=== PATIENT | male | born 1935 | race Caucasian/White ===

== ENCOUNTER 2023-02-25 06:41 | Outpatient (CLI) | payer OTHER, SELFPAY ==
[2023-02-25 07:21] LABS: Basophils Percent Auto 0.4 % (0.2-1.2); Eosinophils Absolute Auto 0.2 K/mm3 (0-0.3); Hematocrit 41.1 % (42.0-52.0); Hemoglobin 13.5 g/dL (14.0-18.0); Immature Granulocyte Absolute 0.03 K/mm3 (0.00-0.031); Immature Granulocyte Percent A 0.3 % (0-0.5); Lymphocytes Absolute Auto 3.08 K/mm3 (0.9-3.2); Lymphocytes Percent Auto 28.5 % (18.3-44.2); Mean Corpuscular HGB Conc 32.8 g/dl (32-36); Mean Corpuscular Hemoglobin 30.1 pg (26-34); Mean Corpuscular Volume 91.5 fl (80-100); Mean Platelet Volume 11.3 fl (7.4-10.4); Monocytes Absolute Auto 0.9 K/mm3 (0.1-0.6); Monocytes Percent Auto 8.1 % (2.6-8.5); Neutrophils Absolute Auto 6.6 K/mm3 (1.3-6.7); Neutrophils Percent Auto 60.7 % (45.5-73.1); Platelet Count Result 213 k/mm3 (150-375); Red Blood Count 4.49 M/mm3 (4.6-6.20); Red Cell Distribution Width 13.3 % (11.5-14.5); White Blood Count 10.8 K/mm3 (4.5-10.0)
[2023-02-25 07:36] LABS: Alanine Aminotransferase 22 U/L (6-50); Albumin Level 4.4 g/dL (3.5-5.1); Alkaline Phosphatase 50 U/L (38-126); Anion Gap 8 mmol/L (8-16); Aspartate Amino Transferase 25 U/L (17-59); Bilirubin,Total 0.7 mg/dL (0.2-1.3); Blood Urea Nitrogen 24 mg/dL (9-20); Calcium 8.9 mg/dL (8.4-10.2); Carbon Dioxide 30 mmol/L (22-30); Chloride 103 mmol/L (98-107); Cholesterol 118 mg/dL (0-200); Estimated Glomerular Filt Rate 52; Glucose 108 mg/dL (65-110); HDL Direct 38 mg/dL; Potassium 3.6 mmol/L (3.4-5.0); Sodium 141 mmol/L (137-145); Triglycerides 121 mg/dL (<150)
[2023-02-25 07:46] LABS: LDL Cholesterol Direct 51 mg/dL
== END 2023-02-25 06:42 | disposition home or self-care (01) ==
PROVIDERS: PCP Internal Medicine; Visit Provider Clinical Nurse Specialist
DX: I10 Essential (primary) hypertension (principal); E78.2 Mixed hyperlipidemia; F03.90 Unspecified dementia, unspecified severity, without behavioral disturbance, psychotic disturbance, mood disturbance, and anxiety
CPT/HCPCS: 36415; 80053; 80061; 82607; 84443; 85025

== ENCOUNTER → 2023-09-02 10:17 | Outpatient (CLI) | payer OTHER, SELFPAY ==
--- NOTE | ~2023-09-02 | XR_ITS ---
EXAMINATION: XR lumbar spine 2-3V DATE: 09/02/2023 10:36 INDICATION: Low back pain. TECHNIQUE: 3 views of lumbar spine were obtained. COMPARISON: None. FINDINGS: There is 5 degrees dextrocurvature of lumbar spine. There is 3 mm retrolisthesis of L3 on L 4. Vertebral body heights are normal. There is mildly decreased disc height at L2-L3, moderately decr eased disc height at L3-L4, severely decreased disc height at L4-L5, and mildly decreased disc height at L5-S1. There is multilevel facet joint osteoarthritis, severe in lower lumbar spine. There are en dplate osteophytes at all levels. IMPRESSION: 1. Severe lumbar spondylosis. Reviewed, dictated and finalized at location E.
== END ==
PROVIDERS: PCP Emergency Medicine; Visit Provider Emergency Medicine
DX: M43.06 Spondylolysis, lumbar region (principal)
CPT/HCPCS: 72100

== ENCOUNTER 2023-10-20 16:51 | Inpatient (IN) | payer OTHER, SELFPAY ==
[2023-10-20] VITALS (10 sets, daily range): BP systolic 119–177; BP diastolic 70–94; PULSE 75–101; RESP 16–25; TEMP 36.8; O2SAT 95–98
--- NOTE | ~2023-10-20 | CT_ITS ---
EXAMINATION: CT brain wo con DATE: 10/20/2023 18:00 INDICATION: Head injury. Fall. TECHNIQUE: Computed tomography (CT) of the head was performed without intravenous contrast. The mA wa s adjusted according to patient size. Iterative reconstruction technique was employed. The dose-lengt h product was 681.00 mGy-cm. COMPARISON: None FINDINGS: There is diffuse brain volume loss. There are scattered areas of low attenuation in the cer ebral white matter, which is within normal limits for the patient's age. There is no intracranial hem orrhage, acute infarction, or abnormal intracranial mass lesion. The ventricles are normal in size. T he mastoid air cells are normal. There is mild mucosal thickening in the paranasal sinuses. There are likely changes of ocular lens replacement surgeries. IMPRESSION: 1. Normal aging brain. Reviewed, dictated and finalized at location E. RIST REPRESENTATIVE IMPRESSION: 1. Normal aging brain.
--- NOTE | ~2023-10-20 | XR_ITS ---
EXAMINATION: XR chest 1V portable DATE: 10/20/2023 20:08 INDICATION: Pneumonia. TECHNIQUE: A single frontal view of the chest was obtained. COMPARISON: None. FINDINGS: There are lucencies in the lungs, consistent with emphysema. There is mild atelectasis vers us scarring in left lower lung zone. There is mild elevation of left hemidiaphragm. No pleural effusi on or pneumothorax. The heart size is normal. IMPRESSION: 1. Mild atelectasis versus scarring in left lower lung zone. 2. Emphysema. Reviewed, dictated and finalized at location E. H PRESS FEEDER
--- NOTE | ~2023-10-20 | MR_ITS ---
EXAMINATION: MR brain/brain stem wo con DATE: 10/21/2023 15:01 INDICATION: Confusion TECHNIQUE: Magnetic resonance imaging (MRI) of the brain and brainstem was performed without intraven ous contrast. Sequences included sagittal and axial T1-weighted SE, axial diffusion-weighted FS EPI A SSET, axial T2*-weighted GRE, axial T2-weighted FLAIR Propeller, and axial T2-weighted Propeller. Giovanny arent diffusion coefficient (ADC) maps were created. COMPARISON: CT brain 10/20/2023. FINDINGS: Examination is mildly motion limited. No abnormal restricted diffusion to suggest acute ischemic infa rct. No MRI evidence of hemorrhage or extra-axial collection. No suspicious foci of susceptibility to suggest prior intraparenchymal hemorrhage. Moderate patchy white matter hyperintensity, likely repre senting moderate small vessel ischemic disease. Moderate generalized parenchymal volume loss. The bas ilar cisterns are patent. Flow voids are preserved. Paranasal sinuses are within normal limits. Globe s and orbital contents are within normal limits. IMPRESSION: No acute intracranial process. Reviewed, dictated and finalized at location K. HASING DIRECTOR
--- NOTE | ~2023-10-20 | XR_ITS ---
XR chest 1V portable 10/23/2023 12:29 Indication: Audible wheezing Procedure: AP portable chest Comparison: 10/20/2023 Findings: Bibasilar airspace disease. Heart size upper normal. No significant effusion or pneumothora x. Impression: 1: Bibasilar airspace disease may represent atelectasis or pneumonia. Reviewed, dictated and finalized at location . ANGIOGRAPHY Impression: 1: Bibasilar airspace disease may represent atelectasis or pneumonia.
--- NOTE | ~2023-10-20 | CT_ITS ---
EXAMINATION: CT cervical spine wo con DATE: 10/20/2023 18:04 INDICATION: Head injury. TECHNIQUE: Computed tomography (CT) of the cervical spine was performed without intravenous contrast. Automated exposure control and iterative reconstruction technique were employed. The dose-length pro duct was 698.25 mGy-cm. COMPARISON: None FINDINGS: There is mild scarring at the lung apices. Bone alignment is normal. Vertebral body heights are normal. There is interbody fusion at C5-C6. There is mildly decreased disc height at C3-C4 and C 4-C5. The following disc levels are specifically discussed: C2-C3: There is no uncovertebral joint osteoarthritis. There is ankylosis of right facet joint with m oderate hypertrophy. There is moderate left neural foraminal stenosis. There is mild right central ca nal stenosis. C3-C4: There is mild right and moderate left uncovertebral joint osteoarthritis. There is moderate se joslyn left facet joint osteoarthritis. There is moderate left neural foraminal stenosis. There is no c entral canal stenosis. C4-C5: There is mild right and severe left uncovertebral joint osteoarthritis. There is mild right an d severe left facet joint osteoarthritis. There is mild left neural foraminal stenosis. There is mild central canal stenosis. C5-C6: There is severe bilateral uncovertebral joint hypertrophy. There is moderate bilateral facet j oint osteoarthritis. There is mild bilateral neural foraminal stenosis. There is mild central canal s tenosis. C6-C7: There is mild bilateral uncovertebral joint osteoarthritis. There is severe bilateral facet tavon int osteoarthritis. There is mild bilateral neural foraminal stenosis. There is mild central canal st enosis. C7-T1: There is no uncovertebral joint osteoarthritis. There is moderate bilateral facet joint osteoa rthritis. There is mild left neural foraminal stenosis. There is no central canal stenosis. IMPRESSION: 1. No fracture. 2. Moderate cervical spondylosis. Reviewed, dictated and finalized at location E. T METAL LAY OUT WORKER
--- NOTE | 2023-10-20 17:02 | ECG_ITS ---
Measurements Intervals [place] Rate: 90 P: 46 SD: 190 QRS: 33 QRSD: 86 T: 88 QT: 335 QTc: 411 Interpretive Statements SINUS RHYTHM NONSPECIFIC ST & T-WAVE ABNORMALITY NO PREVIOUS ECG AVAILABLE FOR COMPARISON Electronically Signed On 10-21-2023 13:24:59 AUDIO VISUAL FACILITIES ENGINEER by Colette Montilla M.D.
--- NOTE | 2023-10-20 17:04 | ED.FALL ---
HPI - Fall General Chief Complaint: Fall Stated Complaint: glf, unknown LOC Source: patient, family () and EMS Mode of arrival: EMS Limitations: dementia History of Present Illness HPI Narrative: Patient presents with history of dementia. Report of a ground level fall. Found on the ground by . Fall not witnessed, unknown down time. serves as his primary caregiver as he still lives at home. Patient can not recall details and can not provide history. Unknown if he hit his head. Multiple abrasions on bilateral upper extremities. A&O x1 (self) which is baseline. Clopidogrel is on med list. EMS notes POC glucose was 126mg/dL. Med list also includes donepezil, amlodipine. Related Data Home Medications Medication Instructions Recorded Confirmed atorvastatin 40 mg tablet 40 mg PO DAILY 02/18/23 10/21/23 carvedilol 25 mg tablet 25 mg PO Q12H 02/18/23 10/21/23 clopidogrel 75 mg tablet 75 mg PO DAILY 02/18/23 10/21/23 cyanocobalamin (vitamin B-12) 1,000 mcg PO DAILY 02/18/23 10/21/23 1,000 mcg capsule hydrochlorothiazide 25 mg tablet 25 mg PO DAILY 02/18/23 10/21/23 gudjyfko-arp-ngikm acid 0.4 1 tablet PO DAILY 02/18/23 10/21/23 mg-lycopene 300 mcg-lutein 250 mcg tablet (Centrum Silver) xjxkc-8s-pif-epa-fish oil 120 2 cap PO DAILY 02/18/23 10/21/23 mg-180 mg-60 mg-1,200 mg capsule, DR (Fish Oil) potassium chloride 10 mEq 10 meq PO DAILY 02/18/23 10/21/23 capsule,extended release aspirin 81 mg tablet 81 mg PO QHS 10/21/23 10/21/23 irbesartan 150 mg tablet 150 mg DAILY 10/21/23 10/21/23 memantine 10 mg tablet 10 mg PO BID 10/21/23 10/21/23 Allergies Allergy/AdvReac Type Severity Reaction Status Date / Time No Known Allergies Allergy Unverified 09/02/23 09:40 [facility] Past Medical History Medical History (Updated 10/23/23 @ 10:52 by Nimo Rollins MD) Coronary artery disease Remote coronary stent Dementia Fall Hyperlipidemia Hypertension Obstructive sleep apnea Family History Family History (Updated 10/21/23 @ 16:05 by Donna Bernal RN) Mother Dementia Other No pertinent family history Social History Social History (Updated 10/21/23 @ 12:38 by Colette Montilla MD) Social History: Retired senior financial reporting accountant, , 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 Smoking status: Former smoker Alcohol intake: never Substance use: never Lack of Transportation: No Lack of Food: Never True Current Housing: I Have Housing Concerned About Future Housing: No Difficulty Paying Gas/Electric Bills: No Difficulty Paying for Meds: No Currently Unemployed: No Education: Bachelor's Degree Difficulty w/ Childcare or Family Care: No Living arrangements: with family Additional living arrangements comments: Lives with his Isabella Occupation/Education: retired Spiritual care concerns: No Exam Narrative: GENERAL: Well-appearing, well-nourished, and in no acute distress. HEAD: Slight asymmetry to forehead without distinct hematoma. No lacerations or abrasions. EYES: Pupils grossly normal. Non injected non icteric. ENT: Nares clear, no rhinorrhea or epistaxis. . NECK: Supple. CHEST: Clear to auscultation. No respiratory distress. HEART: Tachycardic rate and rhythm. ABDOMEN: Soft, nontender, nondistended EXTREMITIES: All extremities palpated without tenderness or bony deformity. pelvis stable to compression. Patient demonstrates movement of extremities x4 . Ecchymosis along bilateral upper extremities. 2cm x 3cm skin tear along L elbow not amenable to lac repair, bleeding well controlled. SKIN: Warm, dry, no rash. NEURO: No focal deficits. Alert and oriented x1 (self) PSYCH: Normal mood and affect. Intermittently agitated/restless, trying to get out of bed but verbally redirectable Course Vital Signs Vital signs: Vital Signs Temperature 98.2 F 10/20/23 16:58 Pulse Rate 101 H 10/20/23 16:58 Respiratory Rate 23 H 10/20/23 16:58 Blood Pre
[2023-10-20] MEDS: LORazepam INJ (*CRX) 2 MG/ML VIAL 0.5 MG IV PUSH ×2 (19:24→22:06)
[2023-10-20 19:32] LABS: Basophils Percent Auto 0.2 % (0.2-1.2); Eosinophils Absolute Auto 0.1 K/mm3 (0-0.3); Eosinophils Percent Auto 0.4 % (0-4.4); Hematocrit 42.5 % (42.0-52.0); Hemoglobin 14.2 g/dL (14.0-18.0); Immature Granulocyte Absolute 0.04 K/mm3 (0.00-0.031); Immature Granulocyte Percent A 0.3 % (0-0.5); Lymphocytes Absolute Auto 2.26 K/mm3 (0.9-3.2); Lymphocytes Percent Auto 18.3 % (18.3-44.2); Mean Corpuscular HGB Conc 33.4 g/dl (32-36); Mean Corpuscular Volume 92.8 fl (80-100); Monocytes Absolute Auto 0.9 K/mm3 (0.1-0.6); Monocytes Percent Auto 7.6 % (2.6-8.5); Neutrophils Percent Auto 73.2 % (45.5-73.1); Platelet Count Result 172 k/mm3 (150-375); Red Blood Count 4.58 M/mm3 (4.6-6.20); Red Cell Distribution Width 13.4 % (11.5-14.5); White Blood Count 12.3 K/mm3 (4.5-10.0)
--- NOTE | 2023-10-20 19:38 | PC.NURSE ---
Assumed care of pt from GUSTAVO Irby at this time.
[2023-10-20 19:46] LABS: Alanine Aminotransferase 26 U/L (6-50); Albumin Level 3.8 g/dL (3.5-5.1); Alkaline Phosphatase 45 U/L (38-126); Anion Gap 9 mmol/L (8-16); Aspartate Amino Transferase 59 U/L (17-59); Bilirubin,Total 1.1 mg/dL (0.2-1.3); Blood Urea Nitrogen 17 mg/dL (9-20); Calcium 8.8 mg/dL (8.4-10.2); Carbon Dioxide 24 mmol/L (22-30); Chloride 107 mmol/L (98-107); Creatine Kinase 1303 U/L (55-170); Estimated CRCL calculation 45 ml/min; Estimated Glomerular Filt Rate > 60; Glucose 117 mg/dL (65-110); Potassium 3.5 mmol/L (3.4-5.0); Sodium 140 mmol/L (137-145)
[2023-10-20 19:48] LABS: INR 1.3; Prothrombin Time 16.5 Seconds (11.1-14.7)
[2023-10-20 19:49] LABS: Partial Thromboplastin Time 28.7 SECONDS (22.3-36.8)
[2023-10-20] MEDS: SODIUM CHLORIDE 0.9% IV 1,000 ML 999 ML IV CONT (20:20)
[2023-10-20 20:30] LABS: Appearance Urine Clear (Clear); Bacteria Urine None Seen /hpf; Bilirubin Urine Negative (Negative); Blood Urine 2+ (Negative); Color Urine Yellow (Yellow); Glucose Urine UA Negative (Negative); Hyaline Casts Urine Present /lpf; Ketones Urine 1+ mg/dL (Negative); Leukocyte Esterase Ur Negative LEU/UL (Negative); Nitrate Urine Positive (Negative); Non Pathogenic Casts 0-2; Protein Urine 2+ mg/dL (Negative); RBC Urine 0-2 /hpf (0-2); Specific Grav Ur 1.024 (1.001-1.035); Squamous Epithelial Cell Urine None seen /hpf (Few); Urobilinogen Urine 0.2 mg/dL (<2.0); WBC Urine 0-5 /hpf; pH Urine 5.5 (5.0-9.0)
[2023-10-20 20:31] LABS: Add Urine Microscopic? YES
[2023-10-20 20:59] LABS: Troponin I 0.048 ng/mL (0.000-0.034)
[2023-10-20] MEDS: ASPIRIN 81 MG CHEWABLE TABLET 324 MG PO (21:31)
[2023-10-20] MEDS: LACTATED RINGERS 1,000 ML 150 ML IV CONT (23:43)
[2023-10-21] VITALS (16 sets, daily range): BP systolic 105–170; BP diastolic 52–94; PULSE 65–86; RESP 16–26; TEMP 36.3–36.7; O2SAT 92–100; BMI 26.4
--- NOTE | 2023-10-21 07:10 | PC.NURSE ---
Report given to GUSTAVO Sherman at this time.
[2023-10-21] MEDS: LACTATED RINGERS 1,000 ML 150 ML IV CONT (07:23)
--- NOTE | 2023-10-21 07:26 | PC.NURSE ---
Assumed care of pt. Pt resting with reg resp. Repositioned for comfort. Oriented x1.
--- NOTE | 2023-10-21 09:46 | PC.NURSE ---
Pt agitated, removed all monitoring equipment, gown, pinching staff & swing fist. Pt incontinent of urine, pt cleansed & depends changed. at bedside
--- NOTE | 2023-10-21 09:48 | PC.NURSE ---
Dr. Gunn hospitalist paged in regards to agitation
--- NOTE | 2023-10-21 11:31 | PM.CNCAR ---
Assessment and Plan Assessment and plan (1) Elevated troponin: Code(s): R79.89 - Other specified abnormal findings of blood chemistry Status: Acute Assessment and Plan: Mildly elevated troponins, flat, with no apparent chest discomfort. EKG does not show any ischemic changes. I think this is non ischemic myocardial injury due to the physiologic stress of his fall, struggle, tachycardia, etc.. I do not recommend any further cardiac workup. (2) Fall: Code(s): W19.XXXA - Unspecified fall, initial encounter Status: Acute Assessment and Plan: Known to have frequent falls and be unsteady on his feet. Most likely the etiology of his fall. No evidence of bradycardia by telemetry, vital signs and EKG. --check orthostatics (3) Coronary artery disease: Qualifiers: Coronary Disease-Associated Artery/Lesion type: [place] artery [place] vs. transplanted heart: [place] heart Associated angina: without angina Qualified Code(s): I25.10 - Atherosclerotic heart disease of [place] coronary artery without angina pectoris Code(s): I25.10 - Atherosclerotic heart disease of [place] coronary artery without angina pectoris Status: Acute Assessment and Plan: History of remote coronary stent. CAD appears stable. --continue clopidogrel, atorvastatin (4) Rhabdomyolysis: Code(s): M62.82 - Rhabdomyolysis Status: Acute Assessment and Plan: Mild rhabdomyolysis, getting IV fluids. (5) Vascular dementia: Qualifiers: Dementia severity: moderate Dementia behavioral or psychological symptom: unspecified whether behavioral, psychotic, or mood disturbance or anxiety Qualified Code(s): F01.B0 - Vascular dementia, moderate, without behavioral disturbance, psychotic disturbance, mood disturbance, and anxiety Code(s): F01.50 - Vascular dementia, unspecified severity, without behavioral disturbance, psychotic disturbance, mood disturbance, and anxiety Status: Acute Assessment and Plan: History of progressive dementia (6) Hyperlipidemia: Qualifiers: Hyperlipidemia type: mixed hyperlipidemia Qualified Code(s): E78.2 - Mixed hyperlipidemia Code(s): E78.5 - Hyperlipidemia, unspecified Status: Acute Assessment and Plan: Continue atorvastatin (7) Essential hypertension: Code(s): I10 - Essential (primary) hypertension Status: Acute Assessment and Plan: Running on the high side here. --Continue carvedilol. --Check orthostatics --DC HCTZ if orthostatic Plan No further cardiac evaluation recommended. Cardiology will sign off. Please let us know if we can be of further assistance. History of Present Illness History of Present Illness Consult date/time: 10/21/23 11:31 Reason For Visit: Rhabdomyolysis; Elev Trop Secondary to Demand Isch Narrative: Lisa Salinas is an 88 y.o. male whom I was asked to see at the request of Dr. Nimo Rollins for my advice and opinion regarding the patient's elevated troponin in consultation. The patient has a history of dementia , debilitation, hypertension, RL intolerant to CPAP, and CAD ( stent about 20 years ago). His usual medical doctor is Dr. Juan Sanchez. Patient has progressive dementia and has been unsteady on his feet. He has had some weight loss this month with poor p.o. intake. He has had several falls, last being 1 a week ago where he bruised his right arm. There has been no indication of any loss of consciousness or dizziness. No indication of any chest discomfort or shortness of breath. The patient was in his normal state of health but was found d on the floor by his yesterday afternoon, unclear if any loss of consciousness. The patient had no complaints. She could not get him up and called EMS who recommended he come to the emergency room; apparently his heart rate was fast. His heart rate was 101 initially but had improve
--- NOTE | 2023-10-21 11:47 | PM.IMHP ---
H&P: HPI History of Present Illness Date/Time: 10/21/23 11:47 Chief Complaint: Ground level fall confusion Narrative: This an 88-year-old male who presented from home after he was found on the floor by his . Unclear amount of loss of consciousness. He was awake but a bit confused when seen by the . Most of the history is taken from his . He remains confused while seen in the ER. Denies any shortness of breath or chest pain. In the ER we had elevated blood pressure stable oxygen mildly tachycardic. There was found to have mildly elevated troponin. Cbc and CMP unremarkable. Troponin I 0.048 subsequent level at 0.050. Mild leukocytosis at 12 okay. CK level was elevated at 1300. He is admitted in the setting for further treatment. He has underlying dementia. A chest x-ray showed mild atelectasis versus scarring in the left lower lung zone and emphysema. Review of Systems Review of Systems: ROS unobtainable: Yes unobtainable due to mental status PMFSH Social History Social History Smoking status: Never smoker Lack of Transportation: No Lack of Food: Never True Current Housing: I Have Housing Concerned About Future Housing: No Difficulty Paying Gas/Electric Bills: No Difficulty Paying for Meds: No Currently Unemployed: No Education: Bachelor's Degree Living arrangements: with family Additional living arrangements comments: Lives with his Isabella Occupation/Education: retired Meds Home Medications and Allergies Home Medications Medication Instructions Recorded Confirmed Type atorvastatin 40 mg tablet 40 mg PO DAILY 02/18/23 09/02/23 History carvedilol 25 mg tablet 25 mg PO Q12H 02/18/23 09/02/23 History clopidogrel 75 mg tablet 75 mg PO DAILY 02/18/23 09/02/23 History cyanocobalamin (vitamin B-12) 1,000 mcg PO DAILY 02/18/23 09/02/23 History 1,000 mcg capsule hydrochlorothiazide 25 mg tablet 25 mg PO DAILY 02/18/23 09/02/23 History doawhvmv-lze-uiqrb acid 0.4 1 tablet PO DAILY 02/18/23 09/02/23 History mg-lycopene 300 mcg-lutein 250 mcg tablet (Centrum Silver) zhipb-6z-xpy-epa-fish oil 120 cap PO 02/18/23 09/02/23 History mg-180 mg-60 mg-1,200 mg capsule, DR (Fish Oil) potassium chloride 10 mEq 10 meq PO DAILY 02/18/23 09/02/23 History capsule,extended release trazodone 50 mg tablet See Rx Instructions PO QHS PRN 10/13/23 Rx insomnia #90 tabs Allergies Allergy/AdvReac Type Severity Reaction Status Date / Time No Known Allergies Allergy Unverified 09/02/23 09:40 Vital Signs Vital Signs - 24 hr 10/20/23 16:58 10/20/23 19:58 10/20/23 18:10 Temperature 98.2 F Pulse Rate 101 H 89 89 Respiratory Rate 23 H 16 20 Blood Pressure 166/94 H 168/84 H 168/84 H Pulse Oximetry 98 96 95 Oxygen Delivery Room Air 10/20/23 21:28 10/20/23 21:31 10/20/23 22:02 Temperature Pulse Rate 88 99 81 Respiratory Rate 24 H 23 H 22 H Blood Pressure 157/71 H 177/78 H 119/74 Pulse Oximetry 98 95 97 Oxygen Delivery 10/20/23 22:31 10/20/23 23:01 10/20/23 23:47 Temperature Pulse Rate 82 80 75 Respiratory Rate 25 H 17 21 H Blood Pressure 139/70 131/90 144/80 H Pulse Oximetry 96 97 97 Oxygen Delivery 10/20/23 23:31 10/21/23 00:01 10/21/23 00:31 Temperature Pulse Rate 78 75 73 Respiratory Rate 21 H 22 H 19 Blood Pressure 144/80 H 133/94 H 116/56 L Pulse Oximetry 95 94 93 Oxygen Delivery 10/21/23 01:01 10/21/23 01:32 10/21/23 02:01 Temperature Pulse Rate 70 75 73 Respiratory Rate 17 19 19 Blood Pressure 124/52 L 145/70 H 132/73 Pulse Oximetry 93 92 94 Oxygen Delivery 10/21/23 02:31 10/21/23 03:01 10/21/23 03:31 Temperature Pulse Rate 81 81 71 Respiratory Rate 21 H 18 18 Blood Pressure 162/85 H 128/68 155/65 H Pulse Oximetry 93 94 93 Oxygen Delivery 10/21/23 06:20 10/21/23 04:02 10/21/23 04:31 Temperature Pulse Rate 65 69 67 Res
--- NOTE | 2023-10-21 12:57 | PC.NURSE ---
Hospitalist, Dr. Gunn called regarding pt agitation. This RN reported that patient was unable to remain still for ABG and would not tolerate MRI procedure. He gave VORB for 0.5mg Ativan IVP stat.
[2023-10-21] MEDS: LORazepam INJ (*CRX) 2 MG/ML VIAL 0.5 MG IV PUSH ×2 (13:06→14:33)
[2023-10-21 13:36] LABS: Alveolar/Arterial O2 Gradient 56.6 mmHg; Base Excess ABG 0.1 mEq/l (+/-2.0); Fractional Inspired Oxygen 21 %; HCO3 ABG 24.2 mEq/l (22.0-26.0); Oxygen Content ABG 15.2 %vol (16.0-22.0); PCO2 ABG 37.8 mmHg (35.0-45.0); PO2 FiO2 Ratio Arterial Blood 2.28 %; Total Hemoglobin 13.3 g/dL (12.0-18.0); pH ABG 7.425 (7.350-7.450)
[2023-10-21 13:38] LABS: PO2 ABG 47.9 mmHg (80.0-100.0)
[2023-10-21 13:39] LABS: Oxygen Saturation ABG 84.9 % (95.0-100.0)
[2023-10-21 13:40] LABS: Modified Allen's Test Pass; Oxyhemoglobin 81.6 % THb (90.0-100.0); Site Drawn RIGHT RADIAL
--- NOTE | 2023-10-21 14:27 | PC.NURSE ---
Hospitalist called for more orders. He gave VORB for 0.5mg Ativan IVP stat for MRI. and 2L NC O2.
--- NOTE | 2023-10-21 14:45 | PC.NURSE ---
Pt taken to MRI at this time.
--- NOTE | 2023-10-21 15:54 | ADMGEN ---
This patient, Lisa Salinas, was admitted to Medical Room 258-01. Patient/family oriented to hospital policies and general routines including ID bracelet, bed and alarms, visiting hours, pain management, procedures, bathroom and other care routines, personal items, smoking policy, room service/diet, and visiting hours. Information on how to activate the Rapid Response Team has been discussed. Patient/Family are encouraged to report perceived risks to care and to ask questions if they do not understand what they are told or what they should do.
[2023-10-21] MEDS: HALOPERIDOL LACTATE 5 MG/ML VIAL 2.5 MG IM (17:43)
[2023-10-21] MEDS: LORazepam INJ (*CRX) 2 MG/ML VIAL 1 MG IV PUSH (22:17)
[2023-10-22] VITALS (11 sets, daily range): BP systolic 120–188; BP diastolic 82–91; PULSE 78–98; RESP 20–24; TEMP 36.1–36.6; O2SAT 91–97; BMI 28.5
[2023-10-22 05:12] LABS: Basophils Percent Auto 0.4 % (0.2-1.2); Eosinophils Absolute Auto 0.2 K/mm3 (0-0.3); Hematocrit 41.1 % (42.0-52.0); Hemoglobin 13.5 g/dL (14.0-18.0); Immature Granulocyte Absolute 0.03 K/mm3 (0.00-0.031); Immature Granulocyte Percent A 0.3 % (0-0.5); Lymphocytes Absolute Auto 2.15 K/mm3 (0.9-3.2); Lymphocytes Percent Auto 20.1 % (18.3-44.2); Mean Corpuscular HGB Conc 32.8 g/dl (32-36); Mean Corpuscular Hemoglobin 30.9 pg (26-34); Mean Corpuscular Volume 94.1 fl (80-100); Mean Platelet Volume 11.3 fl (7.4-10.4); Monocytes Absolute Auto 0.9 K/mm3 (0.1-0.6); Monocytes Percent Auto 8.4 % (2.6-8.5); Neutrophils Absolute Auto 7.4 K/mm3 (1.3-6.7); Neutrophils Percent Auto 68.8 % (45.5-73.1); Platelet Count Result 170 k/mm3 (150-375); Red Blood Count 4.37 M/mm3 (4.6-6.20); Red Cell Distribution Width 13.2 % (11.5-14.5); White Blood Count 10.7 K/mm3 (4.5-10.0)
[2023-10-22 05:29] LABS: Alanine Aminotransferase 28 U/L (6-50); Albumin Level 3.6 g/dL (3.5-5.1); Alkaline Phosphatase 50 U/L (38-126); Anion Gap 11 mmol/L (8-16); Aspartate Amino Transferase 54 U/L (17-59); Bilirubin,Total 0.9 mg/dL (0.2-1.3); Blood Urea Nitrogen 14 mg/dL (9-20); Calcium 8.6 mg/dL (8.4-10.2); Carbon Dioxide 25 mmol/L (22-30); Chloride 109 mmol/L (98-107); Creatine Kinase 809 U/L (55-170); Estimated CRCL calculation 41 ml/min; Estimated Glomerular Filt Rate > 60; Glucose 93 mg/dL (65-110); Magnesium 1.9 mg/dL (1.6-2.3); Potassium 3.8 mmol/L (3.4-5.0); Sodium 145 mmol/L (137-145)
[2023-10-22] MEDS: LACTATED RINGERS 1,000 ML 75 ML IV CONT (09:50)
[2023-10-22] MEDS: carvediloL 25 MG TABLET PO ×2 (12:44→22:15)
[2023-10-22] MEDS: IRBESARTAN 150 MG TABLET PO (12:45)
[2023-10-22] MEDS: CLOPIDOGREL BISULFATE 75 MG TABLET PO (12:45)
[2023-10-22] MEDS: hydroCHLOROthiazide 25 MG TABLET PO (12:45)
--- NOTE | 2023-10-22 14:40 | P.PNIM_ITS ---
Progress Note: A&P Assessment and Plan (1) Encephalopathy: Code(s): G93.40 - Encephalopathy, unspecified Status: Acute Assessment and Plan: No signs of infection found. Except mild leukocytosis noted. * MRI brain no acute intracranial process. * CT head negative for any acute abnormality. * No obvious bony injury noted. * Will check ABG for altered mental status. * It does appear that he got Ativan last night which could also contribute to his altered mental status. (2) Fall: Code(s): W19.XXXA - Unspecified fall, initial encounter Status: Acute Assessment and Plan: It is unclear what caused patient's fall. does help patient significantly home with daily activities and is very possible that patient could just be continuing to decline. * Head CT no acute intracranial process. * Cervical spine CT no acute fracture. * Chest x-ray no acute cardiopulmonary process * MRI normal brain. * Chest x-ray is clear. Does have underlying emphysema. * Elevated troponin with flat trend. EKG with nonspecific ST-T changes. No previous EKG in the system. * Received aspirin 325 mg. Takes Plavix at home will continue that. Unlikely to be ACS. Cardiology has been consulted and has signed off on patient. * Unable to do echocardiogram due to patient's combativeness. * PT OT ordered. (3) Rhabdomyolysis: Code(s): M62.82 - Rhabdomyolysis Status: Acute Assessment and Plan: CK 13,000. * Patient given IV fluids. * Today CK of 809. * Continue to monitor. (4) Essential hypertension: Code(s): I10 - Essential (primary) hypertension Status: Acute Assessment and Plan: continue home meds (5) Hyperlipidemia: Qualifiers: Hyperlipidemia type: mixed hyperlipidemia Qualified Code(s): E78.2 - Mixed hyperlipidemia Code(s): E78.5 - Hyperlipidemia, unspecified Status: Acute Assessment and Plan: continue atorvastatin (6) Vascular dementia: Qualifiers: Dementia severity: moderate Dementia behavioral or psychological symptom: unspecified whether behavioral, psychotic, or mood disturbance or anxiety Qualified Code(s): F01.B0 - Vascular dementia, moderate, without behavioral disturbance, psychotic disturbance, mood disturbance, and anxiety Code(s): F01.50 - Vascular dementia, unspecified severity, without behavioral disturbance, psychotic disturbance, mood disturbance, and anxiety Status: Acute Assessment and Plan: stable (7) Coronary artery disease: Qualifiers: Coronary Disease-Associated Artery/Lesion type: [place] artery [place] vs. transplanted heart: [place] heart Associated angina: without angina Qualified Code(s): I25.10 - Atherosclerotic heart disease of [place] coronary artery without angina pectoris Code(s): I25.10 - Atherosclerotic heart disease of [place] coronary artery without angina pectoris Status: Acute Assessment and Plan: Continue atorvastatin Subjective Date/time seen: 10/22/23 14:40 Interval history: Patient unable to answer any questions. at bedside. Patient's states that she does help him with most of his daily living activities such is helping him dress. They do sleep in separate rooms so it is unclear as to how long patient was on the floor. He was fine when his went to bed and when she woke up he was on the ground. He is unable to follow any directions. According the
--- NOTE | 2023-10-22 14:40 | PM.IMPN ---
Progress Note: A&P Assessment and Plan (1) Encephalopathy: Code(s): G93.40 - Encephalopathy, unspecified Status: Acute Assessment and Plan: No signs of infection found. Except mild leukocytosis noted. MRI brain no acute intracranial process. CT head negative for any acute abnormality. No obvious bony injury noted. Will check ABG for altered mental status. It does appear that he got Ativan last night which could also contribute to his altered mental status. (2) Fall: Code(s): W19.XXXA - Unspecified fall, initial encounter Status: Acute Assessment and Plan: It is unclear what caused patient's fall. does help patient significantly home with daily activities and is very possible that patient could just be continuing to decline. Head CT no acute intracranial process. Cervical spine CT no acute fracture. Chest x-ray no acute cardiopulmonary process MRI normal brain. Chest x-ray is clear. Does have underlying emphysema. Elevated troponin with flat trend. EKG with nonspecific ST-T changes. No previous EKG in the system. Received aspirin 325 mg. Takes Plavix at home will continue that. Unlikely to be ACS. Cardiology has been consulted and has signed off on patient. Unable to do echocardiogram due to patient's combativeness. PT OT ordered. (3) Rhabdomyolysis: Code(s): M62.82 - Rhabdomyolysis Status: Acute Assessment and Plan: CK 13,000. Patient given IV fluids. Today CK of 809. Continue to monitor. (4) Essential hypertension: Code(s): I10 - Essential (primary) hypertension Status: Acute Assessment and Plan: continue home meds (5) Hyperlipidemia: Qualifiers: Hyperlipidemia type: mixed hyperlipidemia Qualified Code(s): E78.2 - Mixed hyperlipidemia Code(s): E78.5 - Hyperlipidemia, unspecified Status: Acute Assessment and Plan: continue atorvastatin (6) Vascular dementia: Qualifiers: Dementia severity: moderate Dementia behavioral or psychological symptom: unspecified whether behavioral, psychotic, or mood disturbance or anxiety Qualified Code(s): F01.B0 - Vascular dementia, moderate, without behavioral disturbance, psychotic disturbance, mood disturbance, and anxiety Code(s): F01.50 - Vascular dementia, unspecified severity, without behavioral disturbance, psychotic disturbance, mood disturbance, and anxiety Status: Acute Assessment and Plan: stable (7) Coronary artery disease: Qualifiers: Coronary Disease-Associated Artery/Lesion type: [place] artery [place] vs. transplanted heart: [place] heart Associated angina: without angina Qualified Code(s): I25.10 - Atherosclerotic heart disease of [place] coronary artery without angina pectoris Code(s): I25.10 - Atherosclerotic heart disease of [place] coronary artery without angina pectoris Status: Acute Assessment and Plan: Continue atorvastatin Subjective Date/time seen: 10/22/23 14:40 Interval history: Patient unable to answer any questions. at bedside. Patient's states that she does help him with most of his daily living activities such is helping him dress. They do sleep in separate rooms so it is unclear as to how long patient was on the floor. He was fine when his went to bed and when she woke up he was on the ground. He is unable to follow any directions. According the he has not been taking any of his medications for the past several days although none of these medications should be causing any altered mental status. Would refrain from giving patient any controlled substances that could worsen mental status overall. Exam Narrative: GENERAL: Comfortable, no acute distress HENMT: moist mucous membranes EYES: EOM intact b/l NECK: no lymphadenopathy RESPIRATORY: clear to auscultation CARDIO: RRR
[2023-10-22] MEDS: MEMANTINE 10 MG TABLET PO (17:48)
[2023-10-22] MEDS: ASPIRIN 81 MG ENTERIC TABLET PO (22:15)
[2023-10-23] VITALS (12 sets, daily range): BP systolic 130–168; BP diastolic 68–86; PULSE 77–89; RESP 20; TEMP 36.3–36.8; O2SAT 94–100
[2023-10-23 05:59] LABS: Alanine Aminotransferase 27 U/L (6-50); Albumin Level 3.4 g/dL (3.5-5.1); Alkaline Phosphatase 46 U/L (38-126); Anion Gap 10 mmol/L (8-16); Aspartate Amino Transferase 43 U/L (17-59); Blood Urea Nitrogen 14 mg/dL (9-20); Calcium 8.2 mg/dL (8.4-10.2); Carbon Dioxide 22 mmol/L (22-30); Chloride 109 mmol/L (98-107); Estimated CRCL calculation 50 ml/min; Estimated Glomerular Filt Rate > 60; Glucose 116 mg/dL (65-110); Potassium 3.2 mmol/L (3.4-5.0); Sodium 141 mmol/L (137-145)
[2023-10-23 08:16] LABS: Creatine Kinase 369 U/L (55-170)
[2023-10-23 08:24] LABS: Ammonia 24 umol/L (9-30)
[2023-10-23] MEDS: hydroCHLOROthiazide 25 MG TABLET PO (09:29)
[2023-10-23] MEDS: CLOPIDOGREL BISULFATE 75 MG TABLET PO (09:29)
[2023-10-23] MEDS: CYANOCOBALAMIN 1,000 MCG TABLET 1000 MCG PO (09:29)
[2023-10-23] MEDS: IRBESARTAN 150 MG TABLET PO (09:29)
[2023-10-23] MEDS: POTASSIUM CHLORIDE INJ 40 MEQ in SODIUM CHLORIDE 0.9% IV 500 ML 130 MEQ IVPB (09:29)
[2023-10-23] MEDS: POTASSIUM CHLORIDE 10 MEQ ER TABLET PO (09:29)
[2023-10-23] MEDS: carvediloL 25 MG TABLET PO ×2 (09:29→22:00)
[2023-10-23] MEDS: MEMANTINE 10 MG TABLET PO ×2 (09:29→18:56)
[2023-10-23 12:01] LABS: SARS-CoV-2 RNA PCR Negative (Negative)
--- NOTE | 2023-10-23 13:42 | P.PNIM_ITS ---
Progress Note: A&P Assessment and Plan (1) Encephalopathy: Code(s): G93.40 - Encephalopathy, unspecified Status: Acute Assessment and Plan: No signs of infection found. Except mild leukocytosis noted. * MRI brain no acute intracranial process. * CT head negative for any acute abnormality. * No obvious bony injury noted. * Will check ABG for altered mental status. * It does appear that he got Ativan last night which could also contribute to his altered mental status. (2) Fall: Qualifiers: Encounter type: initial encounter Qualified Code(s): W19.XXXA - Unspecified fall, initial encounter Code(s): W19.XXXA - Unspecified fall, initial encounter Status: Acute Assessment and Plan: It is unclear what caused patient's fall. does help patient significantly home with daily activities and is very possible that patient could just be continuing to decline. * Head CT no acute intracranial process. * Cervical spine CT no acute fracture. * Chest x-ray no acute cardiopulmonary process * MRI normal brain. * Chest x-ray is clear. Does have underlying emphysema. * Elevated troponin with flat trend. EKG with nonspecific ST-T changes. No previous EKG in the system. * Received aspirin 325 mg. Takes Plavix at home will continue that. Unlikely to be ACS. Cardiology has been consulted and has signed off on patient. * Unable to do echocardiogram due to patient's combativeness. * PT OT ordered. (3) Rhabdomyolysis: Qualifiers: Encounter type: initial encounter Code(s): M62.82 - Rhabdomyolysis Status: Acute Assessment and Plan: CK 13,000. . * Today CK of 359. * IV fluids discontinued (4) Essential hypertension: Code(s): I10 - Essential (primary) hypertension Status: Acute Assessment and Plan: continue home meds (5) Hyperlipidemia: Qualifiers: Hyperlipidemia type: mixed hyperlipidemia Qualified Code(s): E78.2 - Mixed hyperlipidemia Code(s): E78.5 - Hyperlipidemia, unspecified Status: Acute Assessment and Plan: continue atorvastatin (6) Vascular dementia: Qualifiers: Dementia severity: moderate Dementia behavioral or psychological symptom: unspecified whether behavioral, psychotic, or mood disturbance or anxiety Qualified Code(s): F01.B0 - Vascular dementia, moderate, without behavioral disturbance, psychotic disturbance, mood disturbance, and anxiety Code(s): F01.50 - Vascular dementia, unspecified severity, without behavioral disturbance, psychotic disturbance, mood disturbance, and anxiety Status: Acute Assessment and Plan: stable (7) Coronary artery disease: Qualifiers: Coronary Disease-Associated Artery/Lesion type: [place] artery [place] vs. transplanted heart: [place] heart Associated angina: without angina Qualified Code(s): I25.10 - Atherosclerotic heart disease of [place] coronary artery without angina pectoris Code(s): I25.10 - Atherosclerotic heart disease of [place] coronary artery without angina pectoris Status: Acute Assessment and Plan: Continue atorvastatin Subjective Date/time seen: 10/23/23 13:42 Interval history: patient very combative and not able to answer questions very easily. is at bedside. Patient did do well with therapy. He did have a coughing fit after taking a drink of water and speech therapy was consulted. They estuardo
--- NOTE | 2023-10-23 13:42 | PM.IMPN ---
Progress Note: A&P Assessment and Plan (1) Encephalopathy: Code(s): G93.40 - Encephalopathy, unspecified Status: Acute Assessment and Plan: No signs of infection found. Except mild leukocytosis noted. MRI brain no acute intracranial process. CT head negative for any acute abnormality. No obvious bony injury noted. Will check ABG for altered mental status. It does appear that he got Ativan last night which could also contribute to his altered mental status. (2) Fall: Qualifiers: Encounter type: initial encounter Qualified Code(s): W19.XXXA - Unspecified fall, initial encounter Code(s): W19.XXXA - Unspecified fall, initial encounter Status: Acute Assessment and Plan: It is unclear what caused patient's fall. does help patient significantly home with daily activities and is very possible that patient could just be continuing to decline. Head CT no acute intracranial process. Cervical spine CT no acute fracture. Chest x-ray no acute cardiopulmonary process MRI normal brain. Chest x-ray is clear. Does have underlying emphysema. Elevated troponin with flat trend. EKG with nonspecific ST-T changes. No previous EKG in the system. Received aspirin 325 mg. Takes Plavix at home will continue that. Unlikely to be ACS. Cardiology has been consulted and has signed off on patient. Unable to do echocardiogram due to patient's combativeness. PT OT ordered. (3) Rhabdomyolysis: Qualifiers: Encounter type: initial encounter Code(s): M62.82 - Rhabdomyolysis Status: Acute Assessment and Plan: CK 13,000. . Today CK of 359. IV fluids discontinued (4) Essential hypertension: Code(s): I10 - Essential (primary) hypertension Status: Acute Assessment and Plan: continue home meds (5) Hyperlipidemia: Qualifiers: Hyperlipidemia type: mixed hyperlipidemia Qualified Code(s): E78.2 - Mixed hyperlipidemia Code(s): E78.5 - Hyperlipidemia, unspecified Status: Acute Assessment and Plan: continue atorvastatin (6) Vascular dementia: Qualifiers: Dementia severity: moderate Dementia behavioral or psychological symptom: unspecified whether behavioral, psychotic, or mood disturbance or anxiety Qualified Code(s): F01.B0 - Vascular dementia, moderate, without behavioral disturbance, psychotic disturbance, mood disturbance, and anxiety Code(s): F01.50 - Vascular dementia, unspecified severity, without behavioral disturbance, psychotic disturbance, mood disturbance, and anxiety Status: Acute Assessment and Plan: stable (7) Coronary artery disease: Qualifiers: Coronary Disease-Associated Artery/Lesion type: [place] artery [place] vs. transplanted heart: [place] heart Associated angina: without angina Qualified Code(s): I25.10 - Atherosclerotic heart disease of [place] coronary artery without angina pectoris Code(s): I25.10 - Atherosclerotic heart disease of [place] coronary artery without angina pectoris Status: Acute Assessment and Plan: Continue atorvastatin Subjective Date/time seen: 10/23/23 13:42 Interval history: patient very combative and not able to answer questions very easily. is at bedside. Patient did do well with therapy. He did have a coughing fit after taking a drink of water and speech therapy was consulted. They recommended mildly thickened liquids with small bite sized food. He does have difficulty following directions. Did have a little bit of wheezing on exam and chest x-ray showed atelectasis versus pneumonia. No other signs of pneumonia or present. Will try to diurese x1 due to patient having fluids recently. Continue to monitor. Exam Narrative: GENERAL: Comfortable, no acute distress HENMT: moist mucous membranes EYES: EOM intact b/l NECK: n
[2023-10-23] MEDS: FUROSEMIDE INJ 40 MG/4 ML VIAL IV PUSH (14:21)
[2023-10-23] MEDS: ASPIRIN 81 MG ENTERIC TABLET PO (22:00)
[2023-10-24] VITALS: PULSE 81
[2023-10-24 03:19] VITALS: BP 123/57; PULSE 69; RESP 20; TEMP 36.3; O2SAT 98
[2023-10-24 04:00] VITALS: PULSE 70
[2023-10-24 06:00] LABS: Basophils Percent Auto 0.2 % (0.2-1.2); Eosinophils Absolute Auto 0.2 K/mm3 (0-0.3); Eosinophils Percent Auto 2.2 % (0-4.4); Hematocrit 42.4 % (42.0-52.0); Hemoglobin 14.2 g/dL (14.0-18.0); Immature Granulocyte Absolute 0.03 K/mm3 (0.00-0.031); Immature Granulocyte Percent A 0.3 % (0-0.5); Lymphocytes Percent Auto 30.8 % (18.3-44.2); Mean Corpuscular HGB Conc 33.5 g/dl (32-36); Mean Corpuscular Hemoglobin 31.3 pg (26-34); Mean Corpuscular Volume 93.4 fl (80-100); Mean Platelet Volume 11.5 fl (7.4-10.4); Monocytes Absolute Auto 1.1 K/mm3 (0.1-0.6); Monocytes Percent Auto 10.6 % (2.6-8.5); Neutrophils Absolute Auto 5.8 K/mm3 (1.3-6.7); Neutrophils Percent Auto 55.9 % (45.5-73.1); Platelet Count Result 222 k/mm3 (150-375); Red Blood Count 4.54 M/mm3 (4.6-6.20); Red Cell Distribution Width 13.3 % (11.5-14.5); White Blood Count 10.4 K/mm3 (4.5-10.0)
[2023-10-24 06:19] LABS: Alanine Aminotransferase 31 U/L (6-50); Albumin Level 3.8 g/dL (3.5-5.1); Alkaline Phosphatase 53 U/L (38-126); Anion Gap 9 mmol/L (8-16); Aspartate Amino Transferase 42 U/L (17-59); Blood Urea Nitrogen 18 mg/dL (9-20); Carbon Dioxide 29 mmol/L (22-30); Chloride 107 mmol/L (98-107); Estimated CRCL calculation 38 ml/min; Estimated Glomerular Filt Rate 57; Glucose 108 mg/dL (65-110); Potassium 3.5 mmol/L (3.4-5.0); Sodium 145 mmol/L (137-145)
[2023-10-24 08:43] VITALS: PULSE 69
[2023-10-24] MEDS: hydroCHLOROthiazide 25 MG TABLET PO (08:52)
[2023-10-24] MEDS: CYANOCOBALAMIN 1,000 MCG TABLET 1000 MCG PO (08:52)
[2023-10-24] MEDS: IRBESARTAN 150 MG TABLET PO (08:52)
[2023-10-24] MEDS: carvediloL 25 MG TABLET PO (08:52)
[2023-10-24] MEDS: CLOPIDOGREL BISULFATE 75 MG TABLET PO (08:52)
[2023-10-24] MEDS: MEMANTINE 10 MG TABLET PO (08:52)
--- NOTE | 2023-10-24 10:26 | PM.DS ---
DS: Admitting Diagnosis Discharge Date 10/24/23 Admitting Diagnosis Altered mental status DS: Discharge Diagnosis Discharge Diagnosis (1) Encephalopathy: Code(s): G93.40 - Encephalopathy, unspecified Status: Acute (2) Fall: Qualifiers: Encounter type: initial encounter Qualified Code(s): W19.XXXA - Unspecified fall, initial encounter Code(s): W19.XXXA - Unspecified fall, initial encounter Status: Acute (3) Rhabdomyolysis: Qualifiers: Encounter type: initial encounter Code(s): M62.82 - Rhabdomyolysis Status: Acute (4) Essential hypertension: Code(s): I10 - Essential (primary) hypertension Status: Acute (5) Hyperlipidemia: Qualifiers: Hyperlipidemia type: mixed hyperlipidemia Qualified Code(s): E78.2 - Mixed hyperlipidemia Code(s): E78.5 - Hyperlipidemia, unspecified Status: Acute (6) Vascular dementia: Qualifiers: Dementia severity: moderate Dementia behavioral or psychological symptom: unspecified whether behavioral, psychotic, or mood disturbance or anxiety Qualified Code(s): F01.B0 - Vascular dementia, moderate, without behavioral disturbance, psychotic disturbance, mood disturbance, and anxiety Code(s): F01.50 - Vascular dementia, unspecified severity, without behavioral disturbance, psychotic disturbance, mood disturbance, and anxiety Status: Acute (7) Coronary artery disease: Qualifiers: Coronary Disease-Associated Artery/Lesion type: [place] artery [place] vs. transplanted heart: [place] heart Associated angina: without angina Qualified Code(s): I25.10 - Atherosclerotic heart disease of [place] coronary artery without angina pectoris Code(s): I25.10 - Atherosclerotic heart disease of [place] coronary artery without angina pectoris Status: Acute DS: Summary Hospital Course Hospital Course: This is an 88-year-old with a past medical history of vascular dementia, RL, hyperlipidemia, hypertension and CAD the present to the ED on 10/21/2023 after being found on the floor by his . is unsure how long patient on the floor. They do sleep in separate rooms and when she went to bed he was in his bed and when she woke in the morning he was on the floor. Patient did have altered mental status. states that he is confused at home and she does have to help with most of his daily living activities. He had a mildly elevated troponin and Cardiology was consulted. Cardiology did not think patient needed any further workup at this time. He was also found to have a CK a level of 1300 and abuse started on IV fluids. Chest x-ray showed mild atelectasis versus scarring. His urine was clear. He had very mild leukocytosis but there were no obvious signs of infection. Patient had head CT, cervical neck CT, CTA of the head and MRI and none of them explained patient's etiology of acute confusion. He was unable to get echocardiogram done due to combativeness. Explained to the that this could be due to worsening could dementia. Patient very well could have had a TIA causing worsened mental status. He did get accepted into SNF for rehab. On the day of discharge is labs and vital signs were stable. Time Spent with Patient Time attestation: Total time spent providing and/or coordinating discharge services: Exam Narrative: GENERAL: Comfortable, no acute distress HENMT: moist mucous membranes EYES: EOM intact b/l NECK: no lymphadenopathy RESPIRATORY: clear to auscultation CARDIO: RRR GI: soft, nontender, bowel sounds present SKIN: no rashes EXTREMITIES: no edema, redness or tenderness DS: Data Data Completed and Pending Labs on day of discharge: Labs from last 24 hours 10/24/23 10/23/23 05:32 11:16 WBC 10.4 H RBC 4.54 L Hgb 14.2 Hct 42.4 MCV 93.4 MCH 31.3 MCHC 33.5 RDW 13.3 Plt Count 222 MPV 11.5 H Immature Gran % (Auto)
[2023-10-24 12:26] LABS: SARS-CoV-2 RNA PCR Negative (Negative)
== END 2023-10-24 13:35 | DRG 71 ==
LOC: ANHED 22:42 → ANH3MEDSUR 23:19 → ANH2MED 10-21 14:43
PROVIDERS: Internal Medicine; Admitting Provider Internal Medicine; Emergency Provider Student in an Organized Health Care Education/Training Program; PCP Emergency Medicine; Visit Provider Internal Medicine Critical Care Medicine
DX: G93.40 Encephalopathy, unspecified (principal); I5A Non-ischemic myocardial injury (non-traumatic); T79.6XXA Traumatic ischemia of muscle, initial encounter; F01.50 Vascular dementia, unspecified severity, without behavioral disturbance, psychotic disturbance, mood disturbance, and anxiety; T42.4X5A Adverse effect of benzodiazepines, initial encounter; S40.812A Abrasion of left upper arm, initial encounter; S40.811A Abrasion of right upper arm, initial encounter; W19.XXXA Unspecified fall, initial encounter; R29.6 Repeated falls; E78.2 Mixed hyperlipidemia; I10 Essential (primary) hypertension; G47.33 Obstructive sleep apnea (adult) (pediatric); I25.10 Atherosclerotic heart disease of native coronary artery without angina pectoris; D72.829 Elevated white blood cell count, unspecified; J43.9 Emphysema, unspecified; Z20.822 Contact with and (suspected) exposure to COVID-19; Z66 Do not resuscitate; Z95.5 Presence of coronary angioplasty implant and graft
CPT/HCPCS: 36415; 36600; 70450; 70551; 71045; 72125; 80053; 81001; 82140; 82248; 82550; 82805; 83735; 84443; 84484; 85025; 85610; 85730; 87635; 92610; 93005; 96361; 96365; 96375; 96376; 97162; 97530; 99285; A9270; J0696; J1630; J1940; J2060; J3480; J7030; J7040; J7120

== ENCOUNTER 2023-11-10 16:06 | Emergency (ER) | payer OTHER, SELFPAY ==
--- NOTE | ~2023-11-10 | CT_ITS ---
EXAMINATION: CT brain wo con DATE: 11/10/2023 17:30 INDICATION: Minor head injury. TECHNIQUE: Computed tomography (CT) of the head was performed without intravenous contrast. The dose- length product was 756.67 mGy-cm. Automated exposure control and iterative reconstruction technique w ere employed. COMPARISON: CT dated 10/20/2023 FINDINGS: There is generalized atrophy. There are scattered mild periventricular and subcortical whit e matter changes, most likely related to small vessel ischemic disease (microangiopathy). No ventricu lomegaly or midline shift. There is intracranial atherosclerosis no acute infarction, hemorrhage, mas s or mass effect. Basilar cisterns are patent. Paranasal sinuses and mastoids are pneumatized. No dep ressed skull fractures. IMPRESSION: 1. No acute intracranial abnormality. Reviewed, dictated and finalized at location A. [employer]
[2023-11-10 16:09] VITALS: BP 174/75; PULSE 89; RESP 26; TEMP 36.6; O2SAT 95
[2023-11-10] MEDS: LORazepam INJ (*CRX) 2 MG/ML VIAL 1 MG IM (16:46)
--- NOTE | 2023-11-10 16:52 | PC.NURSE ---
Pt ripped off all monitoring equipment and was trying to get out of bed. Education attempts unsuccessful due to pt not being A&O
--- NOTE | 2023-11-10 17:02 | ED.GENADULT ---
HPI - General Adult General Chief complaint: Fall Stated complaint: glf Time Seen by Provider: 11/10/23 16:30 History of Present Illness HPI narrative: Patient is an 88-year-old male who presents ER from his senior care after having a fall from his wheelchair. He has an abrasion to his right arm that was Steri-Stripped and dressed prior to arrival here And is apparently from a different fall. Patient unable to provide any history due to dementia. Has no obvious head trauma though there is report that he did strike his head and he takes Plavix. Related Data Home Medications Medication Instructions Recorded Confirmed atorvastatin 40 mg tablet 40 mg PO DAILY 02/18/23 10/21/23 carvedilol 25 mg tablet 25 mg PO Q12H 02/18/23 10/21/23 clopidogrel 75 mg tablet 75 mg PO DAILY 02/18/23 10/21/23 cyanocobalamin (vitamin B-12) 1,000 mcg PO DAILY 02/18/23 10/21/23 1,000 mcg capsule hydrochlorothiazide 25 mg tablet 25 mg PO DAILY 02/18/23 10/21/23 [id number]-nbt-fuhqx acid 0.4 1 tablet PO DAILY 02/18/23 10/21/23 mg-lycopene 300 mcg-lutein 250 mcg tablet (Centrum Silver) oyyhd-7e-ebo-epa-fish oil 120 2 cap PO DAILY 02/18/23 10/21/23 mg-180 mg-60 mg-1,200 mg capsule, DR (Fish Oil) potassium chloride 10 mEq 10 meq PO DAILY 02/18/23 10/21/23 capsule,extended release aspirin 81 mg tablet 81 mg PO QHS 10/21/23 10/21/23 irbesartan 150 mg tablet 150 mg DAILY 10/21/23 10/21/23 memantine 10 mg tablet 10 mg PO BID 10/21/23 10/21/23 Allergies Allergy/AdvReac Type Severity Reaction Status Date / Time No Known Allergies Allergy Verified 11/10/23 16:25 Review of Systems Review of Systems: ROS unobtainable: Yes unobtainable due to mental status PMFSH Past Medical History Medical History (Updated 11/10/23 @ 17:52 by Brad Martinez MD) Coronary artery disease Remote coronary stent Dementia Fall Hyperlipidemia Hypertension Obstructive sleep apnea Family History Family History (Updated 10/21/23 @ 16:05 by Donna Bernal RN) Mother Dementia Other No pertinent family history Social History Social History (Updated 10/21/23 @ 12:38 by Colette Montilla MD) Social History: Retired fund accountant, , 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 Smoking status: Former smoker Alcohol intake: never Substance use: never Do You Feel Safe in your Home?: Yes Lack of Transportation: No Lack of Food: Never True Current Housing: I Have Housing Concerned About Future Housing: No Difficulty Paying Gas/Electric Bills: No Difficulty Paying for Meds: No Currently Unemployed: No Education: Bachelor's Degree Difficulty w/ Childcare or Family Care: No Living arrangements: with family Additional living arrangements comments: Lives with his Isabella Occupation/Education: retired Spiritual care concerns: No Exam Narrative: GENERAL: chronically ill-appearing, well-nourished, and in no acute distress. HEAD: Normocephalic, atraumatic. EYES: PERRL and EOMI. ENT: Mucous membranes moist. CHEST: Clear to auscultation. No respiratory distress. HEART: Regular rate and rhythm. Normal peripheral pulses. ABDOMEN: Soft, nontender, nondistended EXTREMITIES: Normal range of motion. No edema. SKIN: Warm, dry, no rash. NEURO: Alert and oriented x1. Course Course Emergency Course: Imaging without acute intracranial injury. Discharge back to facility. Patient did require some lorazepam for agitation while in the ER. Vital Signs Vital signs: Vital Signs Temperature 97.8 F 11/10/23 16:09 Pulse Rate 89 11/10/23 16:09 Respiratory Rate 26 H 11/10/23 16:09 Blood Pressure 174/75 H 11/10/23 16:09 Pulse Oximetry 95 11/10/23 16:09 Oxygen Delivery Room Air 11/10/23 16:09 Temperature 97.8 F 11/10/23 16:09 Pulse Rate 89 11/10/23 16:09 Respiratory Rate 26 H 11/10/23 16:09 Blood Pressure 174/75 H 11/10/23 16:09 Pulse Oximetry 95 11/10/23 16:09 Oxygen Del
--- NOTE | 2023-11-10 17:17 | PC.NURSE ---
1715: Pt still refusing to have monitoring equipment on and refusing to have vital signs taken
[2023-11-10 18:50] VITALS: PULSE 96; RESP 18; O2SAT 95
[2023-11-10 19:30] VITALS: BP 168/78; PULSE 84; RESP 20; TEMP 36.6; O2SAT 97
== END 2023-11-10 19:36 ==
PROVIDERS: Emergency Provider Emergency Medicine; PCP Emergency Medicine
DX: F03.90 Unspecified dementia, unspecified severity, without behavioral disturbance, psychotic disturbance, mood disturbance, and anxiety (principal); E78.5 Hyperlipidemia, unspecified; I10 Essential (primary) hypertension; Z87.891 Personal history of nicotine dependence; I25.10 Atherosclerotic heart disease of native coronary artery without angina pectoris; Z79.01 Long term (current) use of anticoagulants; W05.0XXA Fall from non-moving wheelchair, initial encounter; Y92.129 Unspecified place in nursing home as the place of occurrence of the external cause
CPT/HCPCS: 70450; 96372; 99284; J2060

== ENCOUNTER 2023-12-06 15:18 | Emergency (ER) | payer OTHER, SELFPAY ==
--- NOTE | ~2023-12-06 | CT_ITS ---
EXAMINATION: CT brain wo con DATE: 12/06/2023 15:51 INDICATION: fall, head injury . TECHNIQUE: Computed tomography (CT) of the head was performed without intravenous contrast. The mA wa s adjusted according to patient size. Iterative reconstruction technique was employed. The dose-lengt h product was 832.33 mGy-cm. COMPARISON: 11/10/2023. FINDINGS: No acute intracranial hemorrhage or extra-axial fluid collection. No hydrocephalus, mass, or herniation. No acute ischemic infarct. Unremarkable dural venous sinus attenuation. No acute osseous abnormality. Mild pansinus mucosal thickening. Aerated secretions in the sphenoid and a small air-fluid level in t he right maxillary sinus, the remaining aerated spaces are clear. Moderate atrophy and mild chronic white matter change. Atherosclerotic intracranial calcification. Bi lateral lens replacements. IMPRESSION: No acute intracranial process. Right maxillary and sphenoid sinus findings may represent acute sinusitis in the appropriate clinical context. Reviewed, dictated and finalized at location K. E OPERATOR IMPRESSION: No acute intracranial process. Right maxillary and sphenoid sinus findings may represent acute sinusitis in th e appropriate clinical context.
[2023-12-06 15:27] VITALS: BP 112/42; PULSE 81; RESP 14; TEMP 36.7; O2SAT 96
--- NOTE | 2023-12-06 15:37 | ED.GENADULT ---
HPI - General Adult General Chief complaint: Fall Stated complaint: fall Source: patient Mode of arrival: EMS Limitations: dementia History of Present Illness HPI narrative: This is an 88-year-old male with PMH of advanced vascular dementia, CAD, HLD, HTN presents to the ED via EMS for chief complaint of a fall. He is coming [place] [facility]. Per EMS patient was in his wheelchair as normal put his feet down too quickly while being wheeled and this caused him to fall forward onto the ground. reported a small laceration to the forehead and he is on Plavix. They are resting a evaluation and CT scan. Patient is nonverbal at baseline and is providing no history. I was able to get in contact with the patient's spouse who is POA and does not want any further testing besides the CT scan. Related Data Home Medications Medication Instructions Recorded Confirmed atorvastatin 40 mg tablet 40 mg PO DAILY 02/18/23 10/21/23 carvedilol 25 mg tablet 25 mg PO Q12H 02/18/23 10/21/23 clopidogrel 75 mg tablet 75 mg PO DAILY 02/18/23 10/21/23 cyanocobalamin (vitamin B-12) 1,000 mcg PO DAILY 02/18/23 10/21/23 1,000 mcg capsule hydrochlorothiazide 25 mg tablet 25 mg PO DAILY 02/18/23 10/21/23 jmtvfmov-yzt-jrkju acid 0.4 1 tablet PO DAILY 02/18/23 10/21/23 mg-lycopene 300 mcg-lutein 250 mcg tablet (Centrum Silver) zjfxx-8s-kxp-epa-fish oil 120 2 cap PO DAILY 02/18/23 10/21/23 mg-180 mg-60 mg-1,200 mg capsule, DR (Fish Oil) potassium chloride 10 mEq 10 meq PO DAILY 02/18/23 10/21/23 capsule,extended release aspirin 81 mg tablet 81 mg PO QHS 10/21/23 10/21/23 irbesartan 150 mg tablet 150 mg DAILY 10/21/23 10/21/23 memantine 10 mg tablet 10 mg PO BID 10/21/23 10/21/23 Allergies Allergy/AdvReac Type Severity Reaction Status Date / Time No Known Allergies Allergy Verified 11/10/23 16:25 Review of Systems Review of Systems: All systems as dictated in [facility] Past Medical History Medical History (Updated 12/06/23 @ 16:33 by Valentino Calixto PA-C) Coronary artery disease Remote coronary stent Dementia Fall Hyperlipidemia Hypertension Obstructive sleep apnea Family History Family History (Updated 10/21/23 @ 16:05 by Donna Bernal RN) Mother Dementia Other No pertinent family history Social History Social History (Updated 10/21/23 @ 12:38 by Colette Montilla MD) Social History: Retired contract accountant, , 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 Smoking status: Former smoker Alcohol intake: never Substance use: never Do You Feel Safe in your Home?: Yes Lack of Transportation: No Lack of Food: Never True Current Housing: I Have Housing Concerned About Future Housing: No Difficulty Paying Gas/Electric Bills: No Difficulty Paying for Meds: No Currently Unemployed: No Education: Bachelor's Degree Difficulty w/ Childcare or Family Care: No Living arrangements: with family Additional living arrangements comments: Lives with his Isabella Occupation/Education: retired Spiritual care concerns: No Exam Narrative: GENERAL: Appears chronically ill. HEAD: Normocephalic, atraumatic. EYES: PERRLA and EOMI. ENT: Nares clear, no rhinorrhea or epistaxis. Mucous membranes moist. Oropharynx without tonsillar hypertrophy exudate or other lesions. NECK: Supple. No adenopathy or masses. CHEST: No respiratory distress. Clear to auscultation. No wheezes rales or rhonchi HEART: Regular rate and rhythm. No murmur heard. Normal peripheral pulses. ABDOMEN: Soft, nontender, nondistended, normal active bowel sounds. MSK: Normal range of motion. No edema. No tenderness throughout the entire MSK exam. SKIN: There is a 0.5 cm superficial laceration to the left forehead. Warm, dry, no rash. Skin is dry. NEURO: Nonverbal. Does not participate with exam or answer questions. Moving spontaneously. Responds to pain. PSYCH: Normal mood and affect.
[2023-12-06 15:59] VITALS: BP 137/71; PULSE 79; RESP 14; TEMP 36.8; O2SAT 100
[2023-12-06 18:43] VITALS: BP 127/56; PULSE 81; RESP 16; TEMP 36.4; O2SAT 97
== END 2023-12-06 18:45 ==
PROVIDERS: Emergency Provider Physician Assistant; PCP Emergency Medicine
DX: S01.81XA Laceration without foreign body of other part of head, initial encounter (principal); F01.50 Vascular dementia, unspecified severity, without behavioral disturbance, psychotic disturbance, mood disturbance, and anxiety; I25.10 Atherosclerotic heart disease of native coronary artery without angina pectoris; I10 Essential (primary) hypertension; E78.5 Hyperlipidemia, unspecified; G47.33 Obstructive sleep apnea (adult) (pediatric); Z95.5 Presence of coronary angioplasty implant and graft; Z87.891 Personal history of nicotine dependence; Z79.02 Long term (current) use of antithrombotics/antiplatelets; Z79.82 Long term (current) use of aspirin; V00.811A Fall from moving wheelchair (powered), initial encounter
CPT/HCPCS: 70450; 99284